=== PATIENT | male | born 1945 | race Caucasian/White ===

== ENCOUNTER 2016-05-31 22:46 | Emergency (ER) | payer MEDICARE ==
[2016-06-01] MEDS ORDERED: guaiFENesin/CODEINE 5 ML UDC PO STA (00:14)
[2016-06-01] MEDS ORDERED: guaiFENesin/CODEINE 5 ML UDC ONE (00:15)
== END 2016-06-01 00:21 | disposition home or self-care (01) ==
DX: J06.9 Acute upper respiratory infection, unspecified (principal); J44.9 Chronic obstructive pulmonary disease, unspecified; I44.7 Left bundle-branch block, unspecified; R94.31 Abnormal electrocardiogram [ECG] [EKG]; I25.10 Atherosclerotic heart disease of native coronary artery without angina pectoris; Z95.1 Presence of aortocoronary bypass graft; I11.0 Hypertensive heart disease with heart failure; I50.9 Heart failure, unspecified; I25.2 Old myocardial infarction; Z79.82 Long term (current) use of aspirin; F17.200 Nicotine dependence, unspecified, uncomplicated
CPT/HCPCS: 36415; 71020; 80053; 83690; 83735; 83880; 84100; 84484; 85025; 93005; 93010; 99284; A9270

== ENCOUNTER 2016-06-30 07:59 | Outpatient (CLI) | payer MEDICARE ==
[2016-06-30 12:02] LABS: CALCIUM 8.8 mg/dL (8.5-10.3); POTASSIUM 4.1 mmol/L (3.5-5.0)
== END 2016-06-30 08:00 | disposition home or self-care (01) ==
LOC: LAB.F 07:59
PROVIDERS: ATTEND Internal Medicine
DX: I50.22 Chronic systolic (congestive) heart failure (principal)
CPT/HCPCS: 36415; 80048

== ENCOUNTER 2016-10-23 10:00 | Outpatient (CLI) | payer MEDICARE ==
[2016-10-23 18:38] LABS: CALCIUM 9.1 mg/dL (8.5-10.3); CREATININE 0.9 mg/dL (0.6-1.2); POTASSIUM 4.1 mmol/L (3.5-5.0)
== END 2016-10-23 10:01 | disposition home or self-care (01) ==
LOC: LAB.F 10:00
PROVIDERS: ATTEND Internal Medicine
DX: I10 Essential (primary) hypertension (principal); I50.9 Heart failure, unspecified
CPT/HCPCS: 36415; 80048

== ENCOUNTER 2016-11-03 08:00 | Outpatient (CLI) | payer MEDICARE ==
[2016-11-04 15:38] LABS: CALCIUM 8.7 mg/dL (8.5-10.3); POTASSIUM 4.1 mmol/L (3.5-5.0)
== END 2016-11-03 23:59 | disposition home or self-care (01) ==
LOC: LAB.F 08:00
PROVIDERS: ATTEND Internal Medicine
DX: I25.10 Atherosclerotic heart disease of native coronary artery without angina pectoris (principal)
CPT/HCPCS: 36415; 80048

== ENCOUNTER 2016-11-30 08:35 | Outpatient (CLI) | payer MEDICARE ==
[2016-11-30 12:30] LABS: CALCIUM 8.8 mg/dL (8.5-10.3); POTASSIUM 4.8 mmol/L (3.5-5.0)
== END 2016-11-30 08:36 | disposition home or self-care (01) ==
LOC: LAB.F 08:35
PROVIDERS: ATTEND Internal Medicine
DX: I25.10 Atherosclerotic heart disease of native coronary artery without angina pectoris (principal)
CPT/HCPCS: 36415; 80048

== ENCOUNTER 2017-04-07 08:36 | Outpatient (CLI) | payer MEDICARE ==
[2017-04-07 10:43] LABS: CALCIUM 8.7 mg/dL (8.5-10.3)
== END 2017-04-07 08:37 | disposition home or self-care (01) ==
LOC: LAB.F 08:36
PROVIDERS: ATTEND Internal Medicine
DX: I25.10 Atherosclerotic heart disease of native coronary artery without angina pectoris (principal)
CPT/HCPCS: 36415; 80048

== ENCOUNTER 2017-05-17 07:32 | Outpatient (CLI) | payer MEDICARE, BC | END 2017-05-17 07:33 | disposition home or self-care (01) | LOC: LAB 07:32 → LAB.F 07:33 | PROVIDERS: ATTEND Internal Medicine | DX: I25.10 Atherosclerotic heart disease of native coronary artery without angina pectoris (principal) | CPT/HCPCS: 36415; 82465; 83721 ==

== ENCOUNTER 2017-11-25 07:19 | Outpatient (CLI) | payer MEDICARE, BC ==
[2017-11-25 10:36] LABS: CALCIUM 8.6 mg/dL (8.5-10.3); CREATININE 0.9 mg/dL (0.6-1.2)
== END 2017-11-25 07:20 | disposition home or self-care (01) ==
LOC: LAB.F 07:19
PROVIDERS: ATTEND Nurse Practitioner
DX: I25.10 Atherosclerotic heart disease of native coronary artery without angina pectoris (principal); I10 Essential (primary) hypertension; I50.22 Chronic systolic (congestive) heart failure
CPT/HCPCS: 36415; 80048

== ENCOUNTER 2018-05-24 10:15 | Outpatient (CLI) | payer MEDICARE, BC ==
[2018-05-24 18:33] LABS: CALCIUM 8.9 mg/dL (8.5-10.3); CREATININE 0.8 mg/dL (0.6-1.2)
== END 2018-05-24 10:16 | disposition home or self-care (01) ==
LOC: LAB.F 10:15
PROVIDERS: ATTEND Internal Medicine
DX: I25.5 Ischemic cardiomyopathy (principal)
CPT/HCPCS: 36415; 80048

== ENCOUNTER 2018-11-14 09:44 | Outpatient (CLI) | payer MEDICARE, BC | END 2018-11-14 09:45 | disposition home or self-care (01) | LOC: LAB.S 09:44 | PROVIDERS: ATTEND Internal Medicine | DX: I25.10 Atherosclerotic heart disease of native coronary artery without angina pectoris (principal) | CPT/HCPCS: 36415; 83721 ==

== ENCOUNTER 2019-01-03 09:03 | Outpatient (CLI) | payer MEDICARE, BC ==
[2019-01-03 17:20] LABS: CALCIUM 8.6 mg/dL (8.5-10.3); CREATININE 0.9 mg/dL (0.6-1.2)
== END 2019-01-03 09:04 | disposition home or self-care (01) ==
LOC: LAB.S 09:03
PROVIDERS: ATTEND Internal Medicine
DX: I50.22 Chronic systolic (congestive) heart failure (principal)
CPT/HCPCS: 36415; 80048

== ENCOUNTER 2019-04-19 10:01 | Outpatient (CLI) | payer MEDICARE, BC ==
[2019-04-19 17:49] LABS: CHOLESTEROL 141 mg/dL; LDL CHOLESTEROL,DIRECT 75 mg/dL
== END 2019-04-19 10:02 | disposition home or self-care (01) ==
LOC: LAB.S 10:01
PROVIDERS: ATTEND Internal Medicine
DX: E78.5 Hyperlipidemia, unspecified (principal)
CPT/HCPCS: 36415; 80061; 82465; 83721

== ENCOUNTER 2019-10-26 09:37 | Outpatient (CLI) | payer MEDICARE, BC ==
[2019-10-26 15:47] LABS: CALCIUM 9.3 mg/dL (8.5-10.3); CREATININE 0.9 mg/dL (0.6-1.2)
== END 2019-10-26 09:38 | disposition home or self-care (01) ==
LOC: LAB.S 09:37
PROVIDERS: ATTEND Internal Medicine
DX: I25.10 Atherosclerotic heart disease of native coronary artery without angina pectoris (principal); Z95.1 Presence of aortocoronary bypass graft; E78.5 Hyperlipidemia, unspecified
CPT/HCPCS: 36415; 80048; 83721

== ENCOUNTER 2020-05-01 09:15 | Outpatient (CLI) | payer MEDICARE, OTHER ==
[2020-05-01 15:05] LABS: CREATININE 0.9 mg/dL (0.6-1.2)
== END 2020-05-01 09:16 | disposition home or self-care (01) ==
LOC: LAB.S 09:15
PROVIDERS: ATTEND Internal Medicine
DX: I25.10 Atherosclerotic heart disease of native coronary artery without angina pectoris (principal); Z95.1 Presence of aortocoronary bypass graft; E78.5 Hyperlipidemia, unspecified
CPT/HCPCS: 36415; 80048; 83721

== ENCOUNTER 2020-12-04 09:54 | Outpatient (CLI) | payer MEDICARE, OTHER ==
[2020-12-04 15:37] LABS: HCT - HEMATOCRIT 39.3 % (42.0-52.0); HGB - HEMOGLOBIN 13.6 g/dL (14.0-18.0); MEAN CORPUSCULAR HEMOGLOBIN 32.7 pg (27.0-31.0); MEAN CORPUSCULAR HGB CONC 34.6 g/dL (32.0-36.0); MEAN CORPUSCULAR VOLUME 94.5 fL (80.0-94.0); RED BLOOD COUNT 4.16 10^6/uL (4.70-6.10); RED CELL DISTRIBUTION WIDTH 13.3 % (12.0-15.0); WHITE BLOOD COUNT 6.3 x10^3/uL (4.8-10.8)
[2020-12-04 15:50] LABS: ALBUMIN 4.3 g/dL (3.2-5.5); ALBUMIN/GLOBULIN RATIO 1.7 (1.0-2.2); ALKALINE PHOSPHATASE 44 IU/L (42-121); ALT ALANINE AMINOTRANSFERASE 20 IU/L (10-60); AST ASPARTATE AMINOTRANSFERASE 23 IU/L (10-42); BILIRUBIN,TOTAL 0.8 mg/dL (0.2-1.0); BUN - BLOOD UREA NITROGEN 20 mg/dL (6-20); CALCIUM 8.9 mg/dL (8.5-10.3); CARBON DIOXIDE - CO2 25 mmol/L (21-32); CHLORIDE 103 mmol/L (101-111); CHOL/HDL RATIO 2.1 (<5.0); CHOLESTEROL 141 mg/dL; CREATININE 0.9 mg/dL (0.6-1.2); GFR - MDRD 82 (>89); GLUCOSE 109 mg/dL (70-100); HDL CHOLESTEROL 66 mg/dL; LDL CHOLESTEROL,CALCULATED 63 mg/dL; SODIUM 137 mmol/L (135-145); TOTAL PROTEIN 6.8 g/dL (6.7-8.2); TRIGLYCERIDES 61 mg/dL; VLDL CHOLESTEROL 12 mg/dL
== END 2020-12-04 09:55 | disposition home or self-care (01) ==
LOC: LAB.S 09:54
PROVIDERS: ATTEND Internal Medicine Cardiovascular Disease
DX: I50.22 Chronic systolic (congestive) heart failure (principal); I25.10 Atherosclerotic heart disease of native coronary artery without angina pectoris
CPT/HCPCS: 36415; 80053; 80061; 83721; 85027

== ENCOUNTER 2021-01-21 07:36 | Outpatient (CLI) | payer MEDICARE, OTHER ==
[2021-01-21 14:23] LABS: HCT - HEMATOCRIT 40.8 % (42.0-52.0); MEAN CORPUSCULAR HEMOGLOBIN 31.7 pg (27.0-31.0); MEAN CORPUSCULAR HGB CONC 34.3 g/dL (32.0-36.0); MEAN CORPUSCULAR VOLUME 92.5 fL (80.0-94.0); MEAN PLATELET VOLUME 10.9 fL (7.4-11.4); RED BLOOD COUNT 4.41 10^6/uL (4.70-6.10); RED CELL DISTRIBUTION WIDTH 13.2 % (12.0-15.0); WHITE BLOOD COUNT 6.2 x10^3/uL (4.8-10.8)
[2021-01-21 14:38] LABS: ALBUMIN 4.4 g/dL (3.2-5.5); ALBUMIN/GLOBULIN RATIO 1.9 (1.0-2.2); ALKALINE PHOSPHATASE 39 IU/L (42-121); ALT ALANINE AMINOTRANSFERASE 24 IU/L (10-60); AST ASPARTATE AMINOTRANSFERASE 27 IU/L (10-42); BILIRUBIN,TOTAL 1.3 mg/dL (0.2-1.0); BUN - BLOOD UREA NITROGEN 19 mg/dL (6-20); CARBON DIOXIDE - CO2 23 mmol/L (21-32); CHLORIDE 103 mmol/L (101-111); CHOL/HDL RATIO 1.7 (<5.0); CHOLESTEROL 121 mg/dL; CREATININE 0.9 mg/dL (0.6-1.2); GFR - MDRD 82 (>89); GLUCOSE 113 mg/dL (70-100); HDL CHOLESTEROL 72 mg/dL; LDL CHOLESTEROL,CALCULATED 37 mg/dL; LDL/HDL RATIO 0.5 (<3.6); POTASSIUM 3.9 mmol/L (3.5-5.0); SODIUM 136 mmol/L (135-145); TOTAL PROTEIN 6.7 g/dL (6.7-8.2); TRIGLYCERIDES 60 mg/dL; VLDL CHOLESTEROL 12 mg/dL
== END 2021-01-21 07:37 | disposition home or self-care (01) ==
LOC: LAB.S 07:36
PROVIDERS: ATTEND Registered Nurse
DX: I50.22 Chronic systolic (congestive) heart failure (principal); I25.10 Atherosclerotic heart disease of native coronary artery without angina pectoris
CPT/HCPCS: 36415; 80053; 80061; 83721; 85027

== ENCOUNTER 2021-05-30 08:00 | Outpatient (CLI) | payer MEDICARE, OTHER ==
[2021-05-30 15:53] LABS: BUN - BLOOD UREA NITROGEN 19 mg/dL (6-20); CALCIUM 8.9 mg/dL (8.5-10.3); CARBON DIOXIDE - CO2 26 mmol/L (21-32); CHLORIDE 101 mmol/L (101-111); CHOLESTEROL 126 mg/dL; GFR - MDRD 73 (>89); GLUCOSE 106 mg/dL (70-100); HDL CHOLESTEROL 62 mg/dL; LDL CHOLESTEROL,CALCULATED 51 mg/dL; LDL/HDL RATIO 0.8 (<3.6); POTASSIUM 4.2 mmol/L (3.5-5.0); SODIUM 134 mmol/L (135-145); TRIGLYCERIDES 63 mg/dL; VLDL CHOLESTEROL 13 mg/dL
== END 2021-05-30 23:59 | disposition home or self-care (01) ==
LOC: LAB.S 08:00
PROVIDERS: ATTEND Physician Assistant Medical
DX: E78.5 Hyperlipidemia, unspecified (principal); I10 Essential (primary) hypertension
CPT/HCPCS: 36415; 80048; 80061; 83721

== ENCOUNTER 2021-12-10 11:45 | Emergency (ER) | payer MEDICARE, OTHER ==
--- NOTE | 2021-12-10 12:51 | XRAY Report ---
PROCEDURE: Chest 1 View X-Ray INDICATIONS: Cough, shortness of breath TECHNIQUE: One view of the chest was acquired. COMPARISON: 05/31/2016 FINDINGS: Surgical changes and devices: Left chest wall single lead cardiac pacing device and median sternotom y changes for CABG. Lungs and pleura: Hyperexpanded lungs suggestive of COPD and mild to moderate emphysema. No acute ai rspace opacity. No pleural effusion. Mediastinum: Mediastinal contours appear normal. Heart size is normal. Bones and chest wall: No suspicious bony lesions. Overlying soft tissues appear unremarkable. IMPRESSION: No acute finding. Reviewed by: Floyd Larose MD on 12/10/2021 12:50 PM PDT Approved by: Floyd Larose MD on 12/10/2021 12:50 PM PDT Station ID: [id number]
[2021-12-10] MEDS ORDERED: CHERRY SYRUP 10 ML UDC PO ONE (14:06)
[2021-12-10] MEDS ORDERED: IPRATROPIUM/ALBUTEROL 3 ML NEB INH STA (14:06)
[2021-12-10] MEDS ORDERED: DEXAMETHASONE 10 MG/ML VIAL PO STA (14:06)
--- NOTE | 2021-12-10 14:07 | ED Physician Documentation ---
PD HPI URI - Stated complaint Stated Complaint: SOA,COUGH - Chief complaint Chief Complaint: Resp - History obtained from History obtained from: Patient, Family - History of Present Illness Timing - onset: How many days ago (10) Timing duration: Days (10) Timing details: Gradual onset, Still present Associated symptoms: Rhinorrhea, Productive cough, Dyspnea. No: Hemoptysis, Chest pain, Bilateral edema, Unilateral edema Contributing factors: Sick contact Improves by: Rest, Medication (cough suppressant helps at night) Similar symptoms before: Has not had sx before Recently seen: Not recently seen - Additional information Additional information: 76-year-old Sean Colon has a history of coronary artery disease and s/p CABG and placement of a defibrillator. On his presentation for his coronary disease the patient had dyspnea as his symptom and he ended up in the ICU at [facility] requiring defibrillation and a two-vessel bypass. He had a complication of his bypass operation with fluid accumulating in his lung. He indicates he has stopped smoking cannabis about 3 weeks ago and he began coughing before he quit and this worsened and now he is coughing up some scant yellow phlem and can hear a wheeze. He has soa at rest. Specifically no left sided chest pain. He has not used an inhaler previously. He has been irrigating his left ear for fullness recently. Review of Systems Constitutional: reports: Fatigue. denies: Fever, Chills Eyes: denies: Decreased vision Ears: reports: Loss of hearing. denies: Ear pain Nose: reports: Rhinorrhea / runny nose, Congestion Throat: denies: Sore throat Cardiac: denies: Chest pain / pressure, Palpitations, Pedal edema, Calf pain Respiratory: reports: Dyspnea, Cough, Wheezing GI: denies: Abdominal Pain, Nausea, Vomiting, Constipation, Diarrhea : denies: Dysuria, Frequency Skin: denies: Rash Musculoskeletal: denies: Neck pain, Back pain, Extremity pain Neurologic: denies: Generalized weakness, Focal weakness, Numbness PD PAST MEDICAL HISTORY - Past Medical History Past Medical History: Yes Cardiovascular: Congestive heart failure, Hypertension, Coronary artery disease, [place] - Past Surgical History Past Surgical History: Yes Cardiovascular: CABG - Present Medications Home Medications: Ambulatory Orders Medication Instructions Recorded Confirmed Aspirin Chewable [[place] 81 mg PO BID 05/02/15 12/10/21 Aspirin] Metoprolol Tartrate [Lopressor] 12.5 mg PO BID 05/02/15 12/10/21 Atorvastatin Calcium 40 mg PO HS 05/31/16 12/10/21 Spironolactone 25 mg PO DAILY 05/31/16 12/10/21 Albuterol Sulf [Ventolin Hfa 1 - 2 puffs INH Q4HR PRN #1 each 12/10/21 Inhaler] Azithromycin [Zithromax] 250 mg PO DAILY #6 tablet 12/10/21 Ezetimibe [Zetia] 10 mg PO DAILY 12/10/21 12/10/21 Sacubitril/Valsartan [Entresto 49 1 tab PO BID 12/10/21 12/10/21 mg-51 mg Tablet] - Allergies Allergies/Adverse Reactions: Allergies Allergy/AdvReac Type Severity Reaction Status Date / Time No Known Drug Allergies Allergy Verified 12/10/21 12:13 - Social History Does the pt smoke?: Yes Smoking Status: Current every day smoker Does the pt drink ETOH?: Yes Does the pt have substance abuse?: Yes - Immunizations Immunizations are current?: Yes - POLST Patient has POLST: No PD ED PE NORMAL - Vitals Vital signs reviewed: Yes (tachy to105) - General General: Alert and oriented X 3, No acute distress, Well developed/nourished - HEENT HEENT: Atraumatic, PERRL, EOMI, Other (The right TM is not visible secondary to narrow canal and cerumen.The left is erythematous in the attic. small canal ) - Neck Neck: Supple, no meningeal sign, No bony TTP - Cardiac Cardiac: RRR, No murmur - Respiratory Respiratory: No respiratory distress, Other (focal wheeze to the left upper lobe ) - Abdomen Abdomen: Soft, Non tender - Back Back: No CVA TTP, No spinal TTP - Derm Derm: Normal color, Warm and dry, No rash - Extremities Extremities: No deformity, No edema - Neuro Neuro: Alert and oriented X 3, pan pusher 2-12 intact, No motor deficit, No sensory deficit, Normal speech Eye Opening: Spontaneous Motor: Obeys Commands Verbal: Oriented GCS Score: 15 - Psych Psych: Normal mood, Normal affect Results - Vitals Vitals: Vital Signs - 24 hr 12/10/21 12/10/21 12/10/21 12:09 12:13 14:13 Temperature 36.8 C 36.8 C Heart Rate 105 H 105 H 70 Respiratory 24 24 16 Rate Blood Pressure 127/76 127/76 135/82 H O2 Saturation 99 99 98 12/10/21 14:52 Temperature Heart Rate 78 Respiratory 20 Rate Blood Pressure O2 Saturation Oxygen O2 Source Room air - EKG (time done) 1509 Rate: Rate (enter#) (78) Rhythm: NSR Intervals: Wide QRS, RBBB QRS: LVH Ischemia: Q waves Compare to prior EKG: Changed from prior EKG (spt 05-31-16 RBBB has developed) Computer interpretation: Agree with computer - Labs Labs: Laboratory Tests 12/10/21 12/10/21 12/10/21 14:07 14:07 14:07 WBC 10.8 RBC 4.46 L Hgb 14.1 Hct 41.0 L MCV 91.9 MCH 31.6 H MCHC 34.4 RDW 12.8 Plt Count 233 MPV 10.0 Neut # (Auto) 8.4 H Lymph # (Auto) 1.3 L [place] # (Auto) 1.0 Eos # (Auto) 0.0 Baso # (Auto) 0.0 Absolute Nucleated RBC 0.00 Nucleated RBC % 0.0 Sodium 132 L Potassium 3.8 Chloride 100 L Carbon Dioxide 23 Anion Gap 9.0 BUN 19 Creatinine 0.9 Estimated GFR (MDRD) 82 L Glucose 111 H Calcium 9.2 Total Bilirubin 1.1 H AST 25 ALT 19 Alkaline Phosphatase 59 Troponin I High Sens 9.4 Total Protein 7.3 Albumin 4.4 Globulin 2.9 Albumin/Globulin Ratio 1.5 Lipase 35 - Rads (name of study) chest Radiology: Prelim report reviewed (Impression: No acute finding.), EMP read indepedently, See rad report PD MEDICAL DECISION MAKING - ED course Complexity details: reviewed old records, reviewed results, re-evaluated patient, considered differential, d/w patient, d/w family ED course: 76-year-old male with a history of coronary artery disease has developed cough and shortness of breath he has wheeze on exam he has a chest x-ray that shows clear lungs he has a negative troponin and he improved with use of a DuoNeb inhaler. He is administered a dose of dexamethasone 10 mg and we will place him on a course of azithromycin for left otitis. He is responding to [id number]-ihhimza cough suppressant and we will also place him on some albuterol. Departure - Departure Disposition: 01 Home, Self Care Clinical Impression: Upper respiratory tract infection Qualifiers: URI type: unspecified URI Qualified Code(s): J06.9 - Acute upper respiratory infection, unspecified Otitis media Qualifiers: Otitis media type: suppurative Chronicity: acute Laterality: left Recurrence: not specified as recurrent Spontaneous tympanic membrane rupture: without spontaneous rupture Qualified Code(s): H66.002 - Acute suppurative otitis media without spontaneous rupture of ear drum, left ear Condition: Stable Instructions: ED Bronchitis Asthmatic, ED Otitis Media Acute Adult Follow-Up: Trace Elizondo MD [Provider Admit Priv/Credential] - Prescriptions: Albuterol Sulf [Ventolin Hfa Inhaler] 1 - 2 puffs INH Q4HR PRN #1 each PRN Reason: Shortness Of Air/Wheezing Azithromycin [Zithromax] 250 mg PO DAILY #6 tablet Comments: Sean, today it looks like your shortness of breath is due to a respiratory infection and our expectations are continued improvement. An inhaler and a "z- holly" have been escribed to [facility] in [place]. Discharge Date/Time: 12/10/21 15:30
[2021-12-10 14:15] LABS: BASOPHILS % (AUTO) 0.4 %; EOSINOPHILS % (AUTO) 0.1 %; HGB - HEMOGLOBIN 14.1 g/dL (14.0-18.0); LYMPHOCYTES # (AUTO) 1.3 10^3/uL (1.5-3.5); LYMPHOCYTES % (AUTO) 11.9 %; MEAN CORPUSCULAR HEMOGLOBIN 31.6 pg (27.0-31.0); MEAN CORPUSCULAR HGB CONC 34.4 g/dL (32.0-36.0); MEAN CORPUSCULAR VOLUME 91.9 fL (80.0-94.0); MONOCYTES % (AUTO) 9.4 %; NEUTROPHILS # (AUTO) 8.4 10^3/uL (1.5-6.6); NEUTROPHILS % (AUTO) 77.8 %; PLT - PLATELET COUNT 233 10^3/uL (130-450); RED BLOOD COUNT 4.46 10^6/uL (4.70-6.10); RED CELL DISTRIBUTION WIDTH 12.8 % (12.0-15.0); WHITE BLOOD COUNT 10.8 x10^3/uL (4.8-10.8)
[2021-12-10 14:34] LABS: ALBUMIN 4.4 g/dL (3.2-5.5); ALBUMIN/GLOBULIN RATIO 1.5 (1.0-2.2); BILIRUBIN,TOTAL 1.1 mg/dL (0.2-1.0); CALCIUM 9.2 mg/dL (8.5-10.3); CREATININE 0.9 mg/dL (0.6-1.2); POTASSIUM 3.8 mmol/L (3.5-5.0); TOTAL PROTEIN 7.3 g/dL (6.7-8.2)
[2021-12-10 14:55] VITALS: BP 135/82
== END 2021-12-10 15:30 | disposition home or self-care (01) ==
LOC: ED 11:45
DX: H66.002 Acute suppurative otitis media without spontaneous rupture of ear drum, left ear (principal); J06.9 Acute upper respiratory infection, unspecified; Z95.1 Presence of aortocoronary bypass graft; F17.200 Nicotine dependence, unspecified, uncomplicated; I11.9 Hypertensive heart disease without heart failure; I25.10 Atherosclerotic heart disease of native coronary artery without angina pectoris
CPT/HCPCS: 36415; 71045; 80053; 83690; 84484; 85025; 93005; 94640; 94664; 99284; A9270

== ENCOUNTER 2022-02-24 10:44 | Outpatient (CLI) | payer MEDICARE, OTHER ==
[2022-02-24 14:42] LABS: CALCIUM 9.2 mg/dL (8.5-10.3); CREATININE 0.8 mg/dL (0.6-1.2); POTASSIUM 4.4 mmol/L (3.5-5.0)
== END 2022-02-24 10:45 | disposition home or self-care (01) ==
LOC: LAB.S 10:44
DX: I10 Essential (primary) hypertension (principal)
CPT/HCPCS: 36415; 80048

== ENCOUNTER 2022-11-20 18:15 | Emergency (ER) | payer MEDICARE, OTHER ==
--- NOTE | 2022-11-20 18:30 | ED Physician Documentation ---
PD HPI CHEST PAIN - Stated complaint Stated Complaint: CHEST PRESSURE - Chief complaint Chief Complaint: Cardiac - History obtained from History obtained from: Patient - Additional information Additional information: 77-year-old gentleman with history of coronary disease, two-vessel bypass 8 years ago in [place], and he states that one of the grafts subsequently failed. He has had a cough productive of phlegm for a week and today developed nonexertional chest pressure that has been constant throughout the day. He denies fevers. No pedal edema or calf pain. No sweats. PD PAST MEDICAL HISTORY - Past Medical History Cardiovascular: Congestive heart failure, Hypertension, Coronary artery disease, [place] - Past Surgical History Past Surgical History: Yes Cardiovascular: CABG - Present Medications Home Medications: Ambulatory Orders Medication Instructions Recorded Confirmed Aspirin Chewable [[place] 81 mg PO BID 05/02/15 12/10/21 Aspirin] Metoprolol Tartrate [Lopressor] 12.5 mg PO BID 05/02/15 12/10/21 Atorvastatin Calcium 40 mg PO HS 05/31/16 12/10/21 Spironolactone 25 mg PO DAILY 05/31/16 12/10/21 Albuterol Sulf [Ventolin Hfa 1 - 2 puffs INH Q4HR PRN #1 each 12/10/21 Inhaler] Azithromycin [Zithromax] 250 mg PO DAILY #6 tablet 12/10/21 Ezetimibe [Zetia] 10 mg PO DAILY 12/10/21 12/10/21 Sacubitril/Valsartan [Entresto 49 1 tab PO BID 12/10/21 12/10/21 mg-51 mg Tablet] Doxycycline [Vibramycin] 100 mg PO BID #14 tablet 11/20/22 - Allergies Allergies/Adverse Reactions: Allergies Allergy/AdvReac Type Severity Reaction Status Date / Time No Known Drug Allergies Allergy Verified 11/20/22 18:34 - Social History Does the pt smoke?: Yes Smoking Status: Current every day smoker Does the pt drink ETOH?: Yes Does the pt have substance abuse?: Yes - Immunizations Immunizations are current?: Yes - POLST Patient has POLST: No PD ED PE NORMAL - Vitals Vital signs reviewed: Yes - General General: Alert and oriented X 3, No acute distress - Neck Neck: Supple, no meningeal sign, No bony TTP - Cardiac Cardiac: RRR, No murmur - Respiratory Respiratory: No respiratory distress, Other (Rhonchorous throughout without focal findings) - Abdomen Abdomen: Non tender - Back Back: No CVA TTP, No spinal TTP - Derm Derm: Normal color, Warm and dry - Extremities Extremities: No edema, No calf tenderness / cord - Neuro Neuro: Alert and oriented X 3, Normal speech Results - Vitals Vitals: Vital Signs - 24 hr 11/20/22 18:25 Temperature 36.9 C Heart Rate 90 Respiratory 20 Rate Blood Pressure 179/97 H O2 Saturation 97 Oxygen O2 Source Room air - EKG (time done) 1823 EKG releavant findings:: EKG personally interpreted by author of this note. Relevant findings are: Rate: Rate (enter#) (80) Rhythm: NSR (With PVCs) Intervals: RBBB, Other (LAFB) QRS: LVH Ischemia: Normal ST segments. No: ST elevation c/w ischemia Compare to prior EKG: Unchanged from prior EKG (No change from December 10, 2021) Computer interpretation: Agree with computer - Labs Labs: Laboratory Tests 11/20/22 11/20/22 18:44 18:44 WBC 9.4 RBC 4.30 L Hgb 13.7 L Hct 38.7 L MCV 90.0 MCH 31.9 H MCHC 35.4 RDW 13.4 Plt Count 183 MPV 10.1 Neut # (Auto) 7.1 H Lymph # (Auto) 1.3 L [place] # (Auto) 0.8 Eos # (Auto) 0.1 Baso # (Auto) 0.0 Absolute Nucleated RBC 0.00 Nucleated RBC % 0.0 Sodium 136 Potassium 3.6 Chloride 104 Carbon Dioxide 23 Anion Gap 9.0 BUN 19 Creatinine 0.9 Estimated GFR (MDRD) 82 L Glucose 104 Calcium 9.2 Total Bilirubin 0.8 AST 20 ALT 17 Alkaline Phosphatase 54 Troponin I High Sens 7.5 Total Protein 6.6 Albumin 4.4 Globulin 2.2 Albumin/Globulin Ratio 2.0 Lipase 23 PD Medical Decision Making - ED course ED course: 77-year-old gentleman presents with chest pressure going on all day, nonexertional in the setting of cough and also known coronary disease. His EKG is not changed from prior and troponin is negative. He has an underlying URI which given his comorbidities, I think is reasonable to treat with antibiotics for a bronchitis. Departure - Departure Disposition: 01 Home, Self Care Clinical Impression: Bronchitis, Atypical chest pain Condition: Good Record reviewed to determine appropriate education?: Yes Instructions: ED Upper Resp Infec Abx Tx Prescriptions: Doxycycline [Vibramycin] 100 mg PO BID #14 tablet Comments: At this point there is no evidence of active heart disease, but return for new or worsening symptoms. Follow-up with your doctor after the weekend for reevaluation. Forms: PCP List
[2022-11-20 18:47] LABS: BASOPHILS % (AUTO) 0.3 %; EOSINOPHILS # (AUTO) 0.1 10^3/uL (0.0-0.7); EOSINOPHILS % (AUTO) 0.6 %; HCT - HEMATOCRIT 38.7 % (42.0-52.0); HGB - HEMOGLOBIN 13.7 g/dL (14.0-18.0); LYMPHOCYTES # (AUTO) 1.3 10^3/uL (1.5-3.5); LYMPHOCYTES % (AUTO) 14.3 %; MEAN CORPUSCULAR HEMOGLOBIN 31.9 pg (27.0-31.0); MEAN CORPUSCULAR HGB CONC 35.4 g/dL (32.0-36.0); MEAN PLATELET VOLUME 10.1 fL (7.4-11.4); MONOCYTES # (AUTO) 0.8 10^3/uL (0.0-1.0); MONOCYTES % (AUTO) 8.9 %; NEUTROPHILS # (AUTO) 7.1 10^3/uL (1.5-6.6); NEUTROPHILS % (AUTO) 75.7 %; PLT - PLATELET COUNT 183 10^3/uL (130-450); RED CELL DISTRIBUTION WIDTH 13.4 % (12.0-15.0); WHITE BLOOD COUNT 9.4 x10^3/uL (4.8-10.8)
[2022-11-20 19:01] LABS: ALBUMIN 4.4 g/dL (3.2-5.5); BILIRUBIN,TOTAL 0.8 mg/dL (0.2-1.0); CALCIUM 9.2 mg/dL (8.5-10.3); CREATININE 0.9 mg/dL (0.6-1.3); POTASSIUM 3.6 mmol/L (3.5-4.5); TOTAL PROTEIN 6.6 g/dL (6.4-8.9)
--- NOTE | 2022-11-20 19:01 | XRAY Report ---
PROCEDURE: Chest 1 View X-Ray INDICATIONS: CHEST PAIN TECHNIQUE: One view of the chest was acquired. COMPARISON: 12/10/2021 FINDINGS: Surgical changes and devices: There is a left-sided AICD. Post CABG changes are seen. Lungs and pleura: No pleural effusions or pneumothorax. Lungs are clear. The lungs are hyperexpan ded. Mediastinum: Mediastinal contours appear normal. Heart size is normal. Bones and chest wall: No suspicious bony lesions. Age-appropriate degenerative changes are seen. O verlying soft tissues appear unremarkable. IMPRESSION: Hyperexpanded lungs are seen, without an acute cardiopulmonary abnormality seen. Postoperative and degenerative changes are seen. Reviewed by: Fernandez Mckeon MD on 11/20/2022 5:59 PM AKTASHI Approved by: Fernandez Mckeon MD on 11/20/2022 5:59 PM AKDT Station ID: [id number]
[2022-11-20 19:07] LABS: TROPONIN I HIGH SENSITIVITY 7.5 ng/L (2.3-19.7)
[2022-11-20] MEDS ORDERED: DOXYCYCLINE 100 MG TABLET PO STA (19:12)
[2022-11-20 19:26] VITALS: BP 141/74; O2SAT 98
== END 2022-11-20 19:28 | disposition home or self-care (01) ==
LOC: ED 18:15
DX: J40 Bronchitis, not specified as acute or chronic (principal); R07.89 Other chest pain; F17.200 Nicotine dependence, unspecified, uncomplicated; I25.810 Atherosclerosis of coronary artery bypass graft(s) without angina pectoris
CPT/HCPCS: 36415; 71045; 80053; 83690; 84484; 85025; 93005; 99284; A9270

== ENCOUNTER 2023-06-05 07:46 | Emergency (ER) | payer MEDICARE, OTHER ==
[2023-06-05] MEDS: SODIUM CHLORIDE 0.9% 1,000 ML IV STA (08:23)
[2023-06-05 08:27] LABS: BASOPHILS # (AUTO) 0.1 10^3/uL (0.0-0.1); BASOPHILS % (AUTO) 0.6 %; EOSINOPHILS # (AUTO) 0.2 10^3/uL (0.0-0.7); EOSINOPHILS % (AUTO) 2.1 %; HCT - HEMATOCRIT 38.9 % (42.0-52.0); HGB - HEMOGLOBIN 13.6 g/dL (14.0-18.0); LYMPHOCYTES # (AUTO) 1.5 10^3/uL (1.5-3.5); LYMPHOCYTES % (AUTO) 16.7 %; MEAN CORPUSCULAR HEMOGLOBIN 31.3 pg (27.0-31.0); MEAN CORPUSCULAR VOLUME 89.4 fL (80.0-94.0); MEAN PLATELET VOLUME 10.2 fL (7.4-11.4); MONOCYTES # (AUTO) 1.1 10^3/uL (0.0-1.0); MONOCYTES % (AUTO) 12.4 %; NEUTROPHILS # (AUTO) 6.1 10^3/uL (1.5-6.6); PLT - PLATELET COUNT 293 10^3/uL (130-450); RED BLOOD COUNT 4.35 10^6/uL (4.70-6.10); RED CELL DISTRIBUTION WIDTH 12.3 % (12.0-15.0); WHITE BLOOD COUNT 8.9 x10^3/uL (4.8-10.8)
[2023-06-05 08:39] LABS: ALBUMIN 3.7 g/dL (3.2-5.5); ALBUMIN/GLOBULIN RATIO 1.4 (1.0-2.2); BILIRUBIN,TOTAL 0.8 mg/dL (0.2-1.0); CALCIUM 9.1 mg/dL (8.5-10.3); CREATININE 0.9 mg/dL (0.6-1.3); POTASSIUM 3.6 mmol/L (3.5-4.5); TOTAL PROTEIN 6.4 g/dL (6.4-8.9)
[2023-06-05] MEDS: guaiFENesin/CODEINE 5 ML UDC PO STA (08:39)
--- NOTE | 2023-06-05 08:42 | ED Physician Documentation ---
History of Present Illness - Stated complaint Stated Complaint: COUGH,FATIGUE - Chief complaint Chief Complaint: Resp - History obtained from History obtained from: Patient - Additonal information Additional information: Patient is a 77-year-old male with a prior history of Coronary artery disease and prior CABG Presenting for evaluation of productive cough and nasal congestion for the past 13 days. Patient states initially he had symptoms for few days and then they started to get better but then returned and have been getting worse. His cough is primarily dry at night and during the day is prod uctive of clear to yellow sputum along with significant nasal drainage. He has been using Saline spray and Mucinex without improvement. No fevers. No known sick contacts. He did go to the walk-in clinic and was just told to continue with epgm-[id number] remedies. He denies chest pain or shortness of air. He has had decreased appetite But no abdominal pain or vomiting. Denies dizziness or lightheadedness. He states this does NOT feel like when he has had prior cardiac issues. Review of Systems Constitutional: denies: Fever Nose: reports: Congestion Cardiac: denies: Chest pain / pressure Respiratory: reports: Cough. denies: Dyspnea GI: denies: Abdominal Pain, Vomiting PD PAST MEDICAL HISTORY - Past Medical History Past Medical History: Yes Cardiovascular: Congestive heart failure, Hypertension, Coronary artery disease, [place] - Past Surgical History Past Surgical History: Yes Cardiovascular: CABG - Present Medications Home Medications: Ambulatory Orders Medication Instructions Recorded Confirmed Aspirin Chewable [[place] Mack 81 mg PO BID 05/02/15 06/05/23 Aspirin] Atorvastatin Calcium 40 mg PO HS 05/31/16 06/05/23 Ezetimibe [Zetia] 10 mg PO DAILY 12/10/21 06/05/23 Sacubitril/Valsartan [Entresto 49 1 tab PO BID 12/10/21 06/05/23 mg-51 mg Tablet] Albuterol Sulf [Ventolin Hfa 1 - 2 puffs INH Q4HR PRN #1 each 06/05/23 Inhaler] Metoprolol Succinate [Toprol Xl] 12.5 mg PO BID 06/05/23 06/05/23 guaiFENesin/CODEINE [Robitussin AC] 5 - 10 ml PO Q6H PRN #120 ml 06/05/23 predniSONE [Deltasone] 40 mg PO DAILY 4 Days #8 tablet 06/05/23 - Allergies Allergies/Adverse Reactions: Allergies Allergy/AdvReac Type Severity Reaction Status Date / Time No Known Drug Allergies Allergy Verified 06/05/23 08:00 - Social History Does the pt smoke?: Yes Smoking Status: Current every day smoker Does the pt drink ETOH?: Yes Does the pt have substance abuse?: Yes - Immunizations Immunizations are current?: Yes - POLST Patient has POLST: No PD ED PE NORMAL - General General: Alert and oriented X 3, No acute distress, Well developed/nourished - HEENT HEENT: Atraumatic, Moist mucous membranes, Pharynx benign - Neck Neck: Supple, no meningeal sign - Cardiac Cardiac: RRR, Strong equal pulses - Respiratory Respiratory: No respiratory distress, Other (Frequent coughing with inspiration; No wheezes or rales) - Abdomen Abdomen: Soft, Non tender, Non distended - Derm Derm: Warm and dry - Extremities Extremities: No edema, No calf tenderness / cord - Neuro Neuro: Normal speech Results - Vitals Vitals: Vital Signs - 24 hr 06/05/23 06/05/23 06/05/23 07:57 08:30 09:30 Temperature 36.3 C L Heart Rate 110 H 88 75 Respiratory 18 22 18 Rate Blood Pressure 173/76 H 137/84 H 123/74 O2 Saturation 100 97 98 Oxygen O2 Source Room air - Labs Labs: Laboratory Tests 06/05/23 06/05/23 06/05/23 08:10 08:19 08:19 WBC 8.9 RBC 4.35 L Hgb 13.6 L Hct 38.9 L MCV 89.4 MCH 31.3 H MCHC 35.0 RDW 12.3 Plt Count 293 MPV 10.2 Neut # (Auto) 6.1 Lymph # (Auto) 1.5 [place] # (Auto) 1.1 H Eos # (Auto) 0.2 Baso # (Auto) 0.1 Absolute Nucleated RBC 0.00 Nucleated RBC % 0.0 Sodium 137 Potassium 3.6 Chloride 105 Carbon Dioxide 24 Anion Gap 8.0 BUN 19 Creatinine 0.9 Estimated GFR (MDRD) 82 L Glucose 120 H Calcium 9.1 Total Bilirubin 0.8 AST 17 ALT 16 Alkaline Phosphatase 46 Total Protein 6.4 Albumin 3.7 Globulin 2.7 Albumin/Globulin Ratio 1.4 Lipase 48 Nasal Adenovirus (PCR) NOT DETECTED Nasal B. parapertussis DNA (PCR) NOT DETECTED Nasal Coronavir 229E PCR NOT DETECTED Nasal Coronavir HKU1 PCR NOT DETECTED Nasal Coronavir NL63 PCR NOT DETECTED Nasal Coronavir OC43 PCR NOT DETECTED Nasal Enterovir/Rhinovir PCR NOT DETECTED Nasal Influenza B PCR NOT DETECTED Nasal Influenza A PCR NOT DETECTED Nasal Parainfluen 1 PCR NOT DETECTED Nasal Parainfluen 2 PCR NOT DETECTED Nasal Parainfluen 3 PCR NOT DETECTED Nasal Parainfluen 4 PCR NOT DETECTED Nasal RSV (PCR) NOT DETECTED Nasal B.pertussis DNA PCR NOT DETECTED Nasal C.pneumoniae (PCR) NOT DETECTED Damaso Human Metapneumo PCR NOT DETECTED Nasal M.pneumoniae (PCR) NOT DETECTED Nasal SARS-CoV-2 (PCR) NOT DETECTED PD Medical Decision Making - ED course Complexity details: reviewed results, re-evaluated patient, d/w patient, d/w family ED course: Patient is a 69-year-old gentleman with cough and congestion for the past 2 weeks. Slightly tachycardic but otherwise stable vital signs. CBC and chemistries were obtained and reviewed and without significant findings and patient is feeling better with IV fluids and cough medication. Chest x-ray which reviewed is negative for pneumonia. Respiratory swab is also negative. Patient does have hyperinflation seen on chest x-ray suggestive of asthma or emphysema. Does have Frequent coughing fits and seems to be having some bronchospasms.This time I do not see signs of bacterial infection requiring antibiotics. However I did recommend use of an inhaler short course of prednisone as well as cough medication which he is agreeable to. Patient counseled on concerning symptoms to return for. Departure - Departure Disposition: 01 Home, Self Care Clinical Impression: Bronchitis, Upper respiratory tract infection Condition: Stable Instructions: ED Viral Syndrome Prescriptions: Albuterol Sulf [Ventolin Hfa Inhaler] 1 - 2 puffs INH Q4HR PRN #1 each PRN Reason: Shortness Of Air/Wheezing predniSONE [Deltasone] 40 mg PO DAILY 4 Days #8 tablet guaiFENesin/CODEINE [Robitussin AC] 5 - 10 ml PO Q6H PRN #120 ml PRN Reason: Cough Comments: Your chest x-ray does not show signs of pneumonia but does show hyperinflation to suggest a condition like asthma or emphysema. Your respiratory swab is negative for the tested viruses and your electrolytes are normal. I have sent prescriptions to help you with this cough and your symptoms to [facility] in [place]. The cough medication does contain codeine which can be sedating so I would not recommend driving while taking this medication. I would recommend close follow-up with your primary care doctor if your symptoms are not improving. Return to the ER with any worsening. Forms: PCP List Discharge Date/Time: 06/05/23 09:31
--- NOTE | 2023-06-05 08:59 | XRAY Report ---
PROCEDURE: Chest 2V INDICATIONS: cough/congestin 2 weeks TECHNIQUE: 2 views of the chest were acquired. COMPARISON: 11/20/2022 FINDINGS: Surgical changes and devices: Left-sided pacemaker. Median sternotomy wires. Lungs and pleura: Hyperinflated lungs without consolidation, effusion, or pneumothorax. Mediastinum: Mediastinal contours appear normal. Heart size is normal. Bones and chest wall: No suspicious bony lesions. Overlying soft tissues appear unremarkable. IMPRESSION: Pulmonary hyperinflation suggesting asthma or emphysema. Postsurgical changes in the heart. Reviewed by: Caridad Rabago MD on 06/05/2023 8:57 AM PDT Approved by: Caridad Rabago MD on 06/05/2023 8:57 AM PDT Station ID: [id number]
[2023-06-05 09:05] LABS: B. PARAPERTUSSIS- RESP PCR PAN NOT DETECTED; B. PERTUSSIS- RESP PCR PANEL NOT DETECTED; C. PNEUMONIAE- RESP PCR PANEL NOT DETECTED; CORONAVIRUS 229E-RESP PCR NOT DETECTED; CORONAVIRUS HKU1-RESP PCR NOT DETECTED; CORONAVIRUS NL63-RESP PCR NOT DETECTED; CORONAVIRUS OC43-RESP PCR NOT DETECTED; HUMAN METAPNEUMOVIRUS NOT DETECTED; INFLUENZA A- RESP PCR PANEL NOT DETECTED; INFLUENZA B - RESP PCR PANEL NOT DETECTED; M. PNEUMONIAE- RESP PCR PANEL NOT DETECTED; PARAINFLUENZA VIRUS 1 NOT DETECTED; PARAINFLUENZA VIRUS 2 NOT DETECTED; PARAINFLUENZA VIRUS 3 NOT DETECTED; PARAINFLUENZA VIRUS 4 NOT DETECTED; RHINOVIRUS/ENTEROVIRUS NOT DETECTED; RSV- RESP PCR PANEL NOT DETECTED; SARS-CoV-2 -RESP PCR PANEL NOT DETECTED
[2023-06-05 09:38] VITALS: BP 123/74; O2SAT 98
== END 2023-06-05 09:31 | disposition home or self-care (01) ==
LOC: ED 07:46
DX: J40 Bronchitis, not specified as acute or chronic (principal); J06.9 Acute upper respiratory infection, unspecified; I25.810 Atherosclerosis of coronary artery bypass graft(s) without angina pectoris; I11.0 Hypertensive heart disease with heart failure; I50.9 Heart failure, unspecified; I25.2 Old myocardial infarction; F17.200 Nicotine dependence, unspecified, uncomplicated; Z95.1 Presence of aortocoronary bypass graft; Z79.82 Long term (current) use of aspirin; Z79.899 Other long term (current) drug therapy
CPT/HCPCS: 36415; 71046; 80053; 83690; 85025; 87633; 96360; 99284; A9270

== ENCOUNTER 2023-07-22 09:11 | Outpatient (CLI) | payer MEDICARE, OTHER ==
[2023-07-22 15:01] LABS: CALCIUM 9.3 mg/dL (8.5-10.3)
== END 2023-07-22 09:12 | disposition home or self-care (01) ==
LOC: LAB.S 09:11
PROVIDERS: ATTEND Internal Medicine Cardiovascular Disease
DX: I25.5 Ischemic cardiomyopathy (principal); Z95.810 Presence of automatic (implantable) cardiac defibrillator
CPT/HCPCS: 36415; 80048